=== PATIENT | female | born 1935 | race Caucasian/White ===

== ENCOUNTER → 2017-04-02 | Outpatient (CLI) | payer MEDICARE, OTHER | END | disposition home or self-care (01) | LOC: CFH 10:11 | PROVIDERS: ATTEND Nurse Practitioner Primary Care | DX: Z13.820 Encounter for screening for osteoporosis (principal); M81.0 Age-related osteoporosis without current pathological fracture; K21.9 Gastro-esophageal reflux disease without esophagitis; E78.2 Mixed hyperlipidemia; E03.9 Hypothyroidism, unspecified | CPT/HCPCS: 77080 ==

== ENCOUNTER 2020-12-29 10:12 | Emergency (ER) | payer MEDICARE, OTHER ==
[~2020-12-29] VITALS: Ht 167.6 cm; Wt 90.0 kg
--- NOTE | 2020-12-29 10:33 | NUR ---
BLEEDING CONTROLLED AT TIME OF ARRIVAL. PT RESTING COMFORTABLY. CONTINUE TO MONITOR, CALL LIGHT WITHIN REACH.
[2020-12-29 11:57] VITALS: BP 122/74
== END 2020-12-29 11:59 | disposition home or self-care (01) ==
LOC: ED 10:45
DX: R04.0 Epistaxis (principal); E78.5 Hyperlipidemia, unspecified
CPT/HCPCS: 99283